=== PATIENT | female | born 2000 | race Caucasian/White ===

== ENCOUNTER 2023-07-27 19:34 | Emergency (ER) | payer BC ==
[~2023-07-27] VITALS: Ht 157.5 cm; Wt 59.0 kg
[2023-07-27 19:50] VITALS: BP 112/75; PULSE 77; RESP 16; TEMP 99; O2SAT 98
[2023-07-27 20:54] LABS: CLARITY URINE CLOUDY (CLEAR); COLOR URINE YELLOW (YELLOW); GLUCOSE URINE NEGATIVE (NEGATIVE); KETONES URINE TRACE (NEGATIVE); LEUKOCYTE ESTERASE URINE NEGATIVE (NEGATIVE); NITRITE URINE NEGATIVE (NEGATIVE); OCCULT BLOOD URINE NEGATIVE (NEGATIVE); PH URINE 5.5 (4.5-8.0); PROTEIN URINE NEGATIVE (NEGATIVE)
[2023-07-27 20:56] LABS: BACTERIA URINE NONE SEEN; SQUAMOUS EPITHELIAL CELL URINE 1+ /lpf (RARE/1+); WBC URINE 0-2 /hpf (0-2); YEAST URINE NONE SEEN
[2023-07-27 21:17] LABS: RBC URINE 0-2 /hpf (0-2)
[2023-07-28] MEDS ORDERED: DOXY-456 MT (00:03)
[2023-07-28] MEDS ORDERED: DOXYCYCLINE HYCLATE 100MG CAPSULE PO ONE (00:15)
[2023-07-28] MEDS ORDERED: CEFTRIAXONE SODIUM 500 MG/VIAL IM ONE (00:15)
== END 2023-07-28 01:10 | disposition home or self-care (01) ==
LOC: ER 19:34
DX: N76.0 Acute vaginitis (principal)
CPT/HCPCS: 87491; 87591; 81003; 81025; 87210; 99283; Z7610 ×2; J0696